=== PATIENT | male | born 1955 | race Caucasian/White ===

== ENCOUNTER 2022-08-20 12:32 | Outpatient (CLI) | payer MEDICARE, OTHER ==
--- NOTE | 2022-08-20 13:32 | SLEEP CARE CONSULTATION ---
Information from patient questionnaire entered by Mandi Srivastava. I have reviewed and concur with the information entered by Mandi Srivastava. This document represents the service I personally performed and the decisions made by me, Rosa Dior ARNP. History of Present Illness Service Date and Time: 08/20/2022 1232 Reason for Visit: New patient, sleep apnea on CPAP therapy Chief Complaint: reports: Insomnia, Snoring, Observed pauses in breathing, Other (UPDATE SUPPLIES ) Date of Onset: 20+YR Usual bedtime: 12AM Time it takes to fall asleep: 10-15MIN - 2HRS Snores at night: Yes Observed to quit breathing while asleep: No Sleeps alone due to snoring: No Number of times waking at night: 1 Reasons for waking at night: reports: Bathroom Toss, Turn, or Twitch while sleeping: Yes Recalls having dreams: Yes Usually gets out of bed at: 9AM Feels refreshed in the morning: Yes Morning headache: Yes (RESOLVES AFTER NOON) Sleepy or fatigued during the day: No Ever fallen asleep while driving: No Takes day naps: Yes Dreams during day naps: No Prior sleep studies: Yes ([facility] 2018) Additional HPI information: DG MOREAU was diagnosed to have mild, AHI 12.2, obstructive sleep apnea- hypopnea syndrome at [facility] in 2019 and comes in today to establish care for CPAP therapy. - Parasomnia Symptoms Ever been unable to move upon waking from sleep: No Walks in sleep: No Talks in sleep: No Ever acted out dreams in sleep: No Ever felt weak in the knees when startled or emotional: No Bothered by creepy, crawly, restless sensations in legs: Yes Problems with memory or concentration: No CPAP Compliance Data - Data Reviewed with Patient Average duration of nightly device use: 7 hours 14 minutes Compliance rate %: 100 (90/90 days used) Current pressure setting (cmH2O): 8-16 Average residual AHI: 2.5 Central apnea: 1.5 Obstructive apnea: 0.3 Average large leak: 1.7 lpm Compliance data discussion: He has been his supplies from [employer]. He has a ResMed Airsense 10. He is use a Resmed F30 full face mask with medium cushion. He does have back up mask. He last changed his cushion 2 weeks ago. Subjective Patient concerns: denies: aerophagia, mask discomfort, air blowing in eyes, mask leak noise, condensation in mask/hose, nasal congestion, dry mouth, nose, throat, epistaxis Observed to snore while using device: No Current pressure setting perceived as: comfortable On therapy, patient: reports: sleeping better, awakening more refreshed, being more awake and alert during the day, more rested overall. denies: drowsiness while driving Initial [place] Sleepiness Scale score: 7 (06/07/22) Past Medical History Past Medical History: reports: Hypertension, Diabetes, Arthritis, GERD Social History The patient's occupation is a RE. Patient is and lives in . Have you smoked in the past 12 months: No Years of smokin Quit date: 1982 Alcohol use: Yes Alcohol amount and frequency: 1-2 A WEEK Caffeine use: Yes Caffeine amount and frequency: 2 CUPS IN MORNING Family History Family history of sleep disordered breathing: Yes Family Hx Sleep Apnea: Mother: Snoring, Sleep apnea - Treated, Father: Snoring, Sleep apnea - Treated, Sibling: Snoring, Sleep apnea - Treated Allergies and Home Medications Known drug allergies: No Drug allergies reviewed: Yes Home medication list reviewed: Yes (see list in EMR) Review of Systems Weight gain over past 5 years: 13 Cardiovascular: reports: high blood pressure Gastrointestinal: reports: heartburn Neurological: reports: headaches Psychiatric: denies: anxiety, depression Ear/Nose/Throat: reports: sinus problems, wisdom teeth removed Musculoskeletal: reports: joint pain, neck pain Physical Exam Vital signs obtained and entered by: MANDI Reaves MA Blood Pressure: 110/70 (LEFT ARM) Cuff size: regular Heart Rate: 77 O2 Saturation: 96 Height: 6 ft Weight: 230 lb Body Mass Index: 31.1 BMI Classification: Obese Neck circumference: 17.75 Heart: regular rate and rhythm Lungs: clear bilaterally Impression and Plan 1. Obstructive Sleep Apnea-Hypopnea Syndrome, mild, with good treatment compliance and good apnea control. On CPAP therapy, the patient has better sleep quality and is more rested overall. Patient is establishing care with us after his last sleep provider's office closed down. Patient has significant improvement of their sleep apnea and is satisfied with current CPAP therapy. I will update his prescription with his DME supplier. He may follow-up next year. Patient denies problems with oral dryness, nasal congestion, epistaxis, skin irritation or aerophagia. Patient's apnea severity and rationale for treatment to reduce apnea, improve sleep quality and reduce cardiovascular and cerebrovascular events was reviewed. I also reviewed the benefit of consistent device use of CPAP for hypertension and diabetes. 2. Obesity, unspecified. Currently patients BMI is 31.1. Obesity increases the risk of apnea, CPAP pressure requirements and overall health risks especially cardiovascular and diabetes. Thus patient is advised to lose weight. * Continue autoCPAP pressure at 8-16 cmH2O * Update supplies * Notify me if snoring with mask or feeling that the pressure is too much or too little * Attempt to lose weight * Call this office if any problems using CPAP * Return for follow up in 1 year, or sooner if concerns arise Counseling Topics: Spare mask, Weight loss health impact Prescriptions: Device supplies Visit Type: In Office Time Spent with Patient (minutes): 31 Provider Statement: I spent 100% of the Face to Face Visit with the patient with greater than 50% spent counseling the patient and coordination of care.
[2022-08-20 13:35] VITALS: BP 110/70
== END 2022-08-20 12:33 | disposition home or self-care (01) ==
LOC: SC 12:32
PROVIDERS: ATTEND Nurse Practitioner Family
DX: G47.33 Obstructive sleep apnea (adult) (pediatric) (principal); E66.9 Obesity, unspecified; Z68.31 Body mass index [BMI] 31.0-31.9, adult
CPT/HCPCS: 99203; G0463; 99212

== ENCOUNTER 2023-08-21 11:09 | Outpatient (CLI) | payer MEDICARE, OTHER ==
--- NOTE | 2023-08-21 11:54 | Sleep Patient Instructions ---
Sleep Center Visit Summary - Patient Visit Information Reason for Visit: Annual follow-up - Patient Instructions Additional Instructions: You will continue with CPAP therapy with pressure changed to 12-14 cmH2O. A supply prescription will be updated with your DME. We encourage you to continue to try to lose weight. Please follow up with the sleep care office in 1 year. - Clinic Information Contact: [facility] [address] [place] [address] [email or web address] T: [phone]
--- NOTE | 2023-08-21 11:59 | SLEEP CARE CONSULTATION ---
Information from patient questionnaire entered by Radha Srivastava. I have reviewed and concur with the information entered by Radha Srivastava. This document represents the service I personally performed and the decisions made by , Rosa Dior ARNP. History of Present Illness Service Date and Time: 08/21/2023 1109 Previous diagnosis: Mild, Obstructive Sleep Apnea-Hypopnea Syndrome AHI: 12.2 (in 2019) Reason for follow up: annual (LAST SEEN 08/2022 NEED MACHINE) Equipment type: CPAP (ResMed Airsense 10, s/u 12/2021) Equipment obtained from: Other ([facility]; getting supplies) Mask style: Full face Mask brand: Resmed (AirFit F30) Backup mask available: Yes Last cushion change: last week Prior sleep studies: Yes ([facility] 2018) HPI additional information: TYLER MOREAU was diagnosed to have mild, AHI 12.2, obstructive sleep apnea- hypopnea syndrome and returned today for CPAP therapy annual follow-up. Sleep Study - Results Prior sleep studies: Yes ([facility] 2017) CPAP Compliance Data - Data Reviewed with Patient Average duration of nightly device use: 7 hours 14 mins Compliance rate %: 99 (08/21/22-08/20/23; 365/365 days used) Current pressure setting (cmH2O): 8-16 (median 8.5, avg 11.4, max 12.8) Average residual AHI: 2.6 Central apnea: 1.2 Obstructive apnea: 0.6 Hypopnea: 0.8 Average large leak: 0.8 L/min Subjective Patient concerns: reports: air blowing in eyes (just due to mask fit, readjustment resolves it). denies: aerophagia, mask discomfort, mask leak noise, condensation in mask/hose, nasal congestion, dry mouth, nose, throat, epistaxis Observed to snore while using device: No Current pressure setting perceived as: too low On therapy, patient: reports: sleeping better, awakening more refreshed, being more awake and alert during the day, more rested overall. denies: drowsiness while driving Initial [place] Sleepiness Scale score: 7 (06/07/22) Current [place] Sleepiness Scale score: 7 (08/21/23) Allergies and Home Medications Known drug allergies: No Drug allergies reviewed: Yes Home medication list reviewed: Yes (no changes) Allergy and home medication list: Allergies No Known Drug Allergies Allergy (Verified 08/19/23 09:49) Review of Systems Review of systems same as previous: Yes (TILF surgery on September 20 for back fushion) Physical Exam Vital signs obtained and entered by: RADHA Reaves MA Blood Pressure: 137/85 (LEFT ARM) Cuff size: regular Heart Rate: 71 O2 Saturation: 96 Height: 6 ft Weight: 226 lb 9.6 oz Weight change since last visit: 4 lb loss Body Mass Index: 30.7 BMI Classification: Obese Impression and Plan 1. Obstructive Sleep Apnea-Hypopnea Syndrome, mild, with good treatment compliance and good apnea control. On CPAP therapy, the patient has better sleep quality and is more rested overall. Tyler states that sometimes he feels like he needs more pressure, that the pressure is not enough. His average AHI is at 2.6 using on average 11.4 cm H2O, occasionally he does use 12.8 cm H2O. The patients pressure will be changed to autoCPAP 12-14 cmH20 for patient comfort. Patient advised to contact me if pressure change is uncomfortable so that it can be adjusted. Goals for apnea control discussed. Patient's apnea severity and rationale for treatment to reduce apnea, improve sleep quality and reduce cardiovascular and cerebrovascular events was reviewed. I also reviewed the benefit of consistent device use of CPAP for hypertension, diabetes. 2. Obesity, unspecified. Currently patients BMI is 30.7. He has lost weight. Obesity increases the risk of apnea, CPAP pressure requirements and overall health risks especially cardiovascular and diabetes. Thus patient is advised to continue to try to lose weight. * Change auto CPAP pressure to 12-14 cmH2O * Update supply prescription * Notify me if snoring with mask or feeling that the pressure is too much or too little * Attempt to lose weight * Call this office if any problems using CPAP * Return for follow up in 12 months, or sooner if concerns arise Adjust device pressure to (cmH2O): 12-14 Counseling Topics: Spare mask, Weight loss health impact Prescriptions: Device supplies Follow up with Sleep Care in: 1 year Visit Type: In Office Time Spent with Patient (minutes): 23 Provider Statement: I spent 100% of the Face to Face Visit with the patient with greater than 50% spent counseling the patient and coordination of care.
[2023-08-21 12:09] VITALS: BP 137/85; O2SAT 96
== END 2023-08-21 11:10 | disposition home or self-care (01) ==
LOC: SC 11:09
PROVIDERS: ATTEND Nurse Practitioner Family
DX: G47.33 Obstructive sleep apnea (adult) (pediatric) (principal); E66.9 Obesity, unspecified; Z68.30 Body mass index [BMI] 30.0-30.9, adult
CPT/HCPCS: 99213; G0463; 99212